=== PATIENT | male | born 1955 | race Caucasian/White ===

== ENCOUNTER 2018-08-15 09:12 | Emergency (ER) | END 2018-08-15 13:10 | disposition home or self-care (01) ==

== ENCOUNTER 2019-03-06 19:09 | Emergency (ER) | payer OTHER ==
[~2019-03-06] VITALS: Ht 167.6 cm; Wt 72.7 kg
[~2019-03-06 19:09] MED LIST: FAMO-96 PO
[2019-03-06 19:10] VITALS: Ht 167.6 cm; Wt 72.7 kg
[2019-03-06] MEDS ORDERED: IBUP-1561 PO (22:17)
[2019-03-06] MEDS ORDERED: ACET-141 PO (22:17)
--- NOTE | 2019-03-06 22:19 | ERD ---
ER Documentation Chief Complaint Chief Complaint pt picked up item and has a muscular pain at center clavicle ROS All systems reviewed and are negative except as per history of present illness. Medications Home Meds Active Scripts Ibuprofen* (Motrin*) 400 Mg Tab, 400 MG PO Q6H PRN for PAIN AND OR ELEVATED TEMP, #30 TAB Prov:SONNY IRWIN DO 03/06/19 Acetaminophen* (Acetaminophen*) 500 MG Extra Strength Tablet, 500 MG PO Q4H PRN for PAIN AND OR ELEVATED TEMP, #30 TAB Prov:SONNY IRWIN DO 03/06/19 Famotidine* (Pepcid*) 20 Mg Tablet, 20 MG PO BID for 4 Days, #30 TAB Prov:KATHY FAIR MD 08/15/18 Allergies Allergies: Coded Allergies: No Known Allergy (Unverified , 08/15/18) PMhx/Soc Medical and Surgical Hx: pt denies Surgical Hx History of Surgery: Yes (R LEG surgery) Anesthesia Reaction: No Hx Neurological Disorder: No Hx Respiratory Disorders: No Hx Cardiac Disorders: No Hx Psychiatric Problems: No Hx Miscellaneous Medical Probl: No Hx Alcohol Use: No Hx Substance Use: No Hx Tobacco Use: No Smoking Status: Never smoker Physical Exam Vitals Vital Signs Date Temp Pulse Resp B/P (MAP) Pulse Ox O2 O2 Flow FiO2 Time Delivery Rate 03/06/19 98.1 60 16 129/129 81 19:10 (129) Physical Exam Const: No acute distress Head: Atraumatic Eyes: Normal Conjunctiva ENT: Normal External Ears, Nose and Mouth. Neck: Full range of motion. No meningismus. Resp: Clear to auscultation bilaterally Cardio: Regular rate and rhythm, no murmurs Abd: Soft, non tender, non distended. Normal bowel sounds Skin: No petechiae or rashes Back: No midline or flank tenderness Ext: No cyanosis, or edema Neur: Awake and alert Psych: Normal Mood and Affect Departure Diagnosis: Primary Impression: Chest wall pain Condition: Fair Patient Instructions: Chest Wall Strain, Rib Contusion Referrals: [facility] YOU HAVE RECEIVED A MEDICAL SCREENING EXAM AND THE RESULTS INDICATE THAT YOU DO NOT HAVE A CONDITION THAT REQUIRES URGENT TREATMENT IN THE EMERGENCY DEPARTMENT. FURTHER EVALUATION AND TREATMENT OF YOUR CONDITION CAN WAIT UNTIL YOU ARE SEEN IN YOUR DOCTORS OFFICE WITHIN THE NEXT 1-2 DAYS. IT IS YOUR RESPONSIBILITY TO MAKE AN APPOINTMENT FOR FOLOW-UP CARE. IF YOU HAVE A PRIMARY DOCTOR --you should call your primary doctor and schedule an appointment IF YOU DO NOT HAVE A PRIMARY DOCTOR YOU CAN CALL OUR PHYSICIAN REFERRAL HOTLINE AT IF YOU CAN NOT AFFORD TO SEE A PHYSICIAN YOU CAN CHOSE FROM THE FOLLOWING [facility] [address] [facility] [address] [facility] [place] [address] [facility] [address] [facility]. [facility] [address] [facility]. [facility]. [address] Additional Instructions: Llame al doctor MAANA y roseann jeanna LORRAINE PARA DENTRO DE 1-2 BEVERLY.Dgale a la secretaria que nosotros le instruimos hacer esta lorraine.Avise o llame si valdez condicin se empeora antes de la lor[place]. Regresa aqui si peor o no mejor. SONNY IRWIN DO Mar 06, 2019 22:19
[2019-03-06 22:33] VITALS: BP 144/92; PULSE 58; RESP 16
== END 2019-03-06 22:36 | disposition home or self-care (01) ==
LOC: FTE 19:09
DX: R07.89 Other chest pain (principal)
CPT/HCPCS: 71120; Z7502